=== PATIENT | female | born 1980 | race Hispanic/Latino ===

== ENCOUNTER 2020-07-03 11:43 | Inpatient (IN) | payer SELFPAY ==
[2020-07-03 12:35] LABS: #Lymphocytes 1.4 thou/uL (1.20-3.40); #Monocytes 0.4 thou/uL (0.11-0.59); #Neutrophils 14.2 thou/uL (1.40-6.50); %Basophils 0.1 % (0.0-1.0); %Eosinophils 0.3 % (0.0-10.0); %Lymphocytes 8.4 % (21.0-51.0); %Monocytes 2.8 % (0.0-10.0); %Neutrophils 88.4 % (42.0-75.0); Hemoglobin 13.5 g/dL (12.0-16.0); Mean Corpuscular HGB CONC 32.2 g/dL (32.0-36.0); Mean Corpuscular Hemoglobin 26.5 pg (27.0-31.0); Mean Corpuscular Volume 82.4 fL (78.0-98.0); Mean Platelet Volume 8.5 fL (7.4-10.4); Platelet Count 352 thou/uL (130-400); RBC Distribution Width 14.1 % (11.5-14.5); Red Blood Cell (RBC) Count 5.08 mill/uL (4.20-5.40)
[2020-07-03] MEDS ORDERED: Morphine 4 MG/ML VIAL ONE (12:36)
[2020-07-03] MEDS ORDERED: Ondansetron PF 4 MG/2 ML Vial ONE (12:36)
[2020-07-03 12:38] LABS: Bilirubin Negative (Negative); Blood, Urine 3+ (Negative); Clarity Turbid (Clear); Glucose, Urine (Dipstick) Normal (Negative); Ketone, Urine Trace mg/dL (Negative); Leukocyte Negative Leu/uL (Negative); Nitrite Negative (Negative); Protein, Urine (Dipstick) Greater than 600 mg/dL (Neg-Trace); RBC/HPF 21-50 HPF (0-3); Urobilinogen Normal mg/dL (Less than 2); pH, Urine 7.5 (5.0-9.0)
[2020-07-03 12:40] LABS: Pregnancy Test - Urine (BHCG) Negative (Negative); Pregu Control Background? CLEAR/WHITE (CLR/WHITE); Pregu Control Bar Appear? YES (CONTROL BAR)
[2020-07-03 12:48] LABS: Bacteria/HPF None Seen HPF (None Seen); Mucous/LPF 1+ LPF (<2+)
[2020-07-03 13:09] LABS: ALT (SGPT) 17 U/L (8-55); AST (SGOT) 15 U/L (5-34); Albumin 4.7 g/dL (3.5-5.0); Alkaline Phosphatase 92 U/L (40-110); Anion Gap 18 mmol/L (10-20); BUN (Urea Nitrogen) 14 mg/dL (7.0-18.7); Bilirubin, Total 0.3 mg/dL (0.2-1.2); Calc. Creatinine Clearance 0 mL/min (70-130); Calcium 9.9 mg/dL (7.8-10.44); Carbon Dioxide 25 mmol/L (22-29); Chloride 99 mmol/L (98-107); Glucose 154 mg/dL (70-105); Lipase 31 U/L (8-78); Potassium 4.3 mmol/L (3.5-5.1); Protein, Total 8.7 g/dL (6.0-8.3); Sodium 138 mmol/L (136-145)
[2020-07-03] MEDS ORDERED: Iopamidol-370 76% 500 ML 1 ML ONE (13:28)
--- NOTE | 2020-07-03 14:29 | CT ---
CT OF THE ABDOMEN AND PELVIS WITH IV CONTRAST INDICATION: Diffuse right-sided abdominal pain since 3:00 AM this morning with nausea and vomiting COMPARISON: None FINDINGS: ABDOMEN: Lung bases: Clear Liver: Mild fatty liver Gallbladder: Cholecystectomy Pancreas: Normal. Adrenal glands: Normal. Spleen: Normal. Kidneys and ureters: Normal. No hydronephrosis. Vasculature: Normal. Lymph nodes:No lymphadenopathy. Free fluid in abdomen:There is mild free fluid within the right upper quadrant of the abdomen. PELVIS: Small and large bowel: There are dilated loops of small bowel which transition to normal caliber with in the right lower quadrant of the abdomen on image 79 series 2. The colon demonstrates a mild amount of fluid and stool. Appendix:Normal Bladder: Normal. Rectal and perirectal soft tissues:Normal. Reproductive structures: Normal. Free fluid in pelvis: Mild free fluid Lymphadenopathy pelvis: No lymphadenopathy is evident. Osseous structures: No acute osseous abnormality. No destructive osteolytic or osteoblastic lesion i s identified. Soft tissues:There is a small fat-containing umbilicus hernia IMPRESSION: 1. Findings most consistent with a [id number] dorsal small bowel obstruction with a suggested t ransition zone in the right lower quadrant of the abdomen. There is mild free fluid in the pelvis and abdomen which may reactive. 2. Fatty liver. 3. Cholecystectomy.
[2020-07-03] MEDS ORDERED: Famotidine/PF 20 mg/2ml Vial ONE (15:39)
[2020-07-03 17:19] VITALS: BMI 36.1
[2020-07-03] MEDS ORDERED: Morphine 4 MG/ML VIAL SLOW IVP PRN (17:31)
[2020-07-03] MEDS ORDERED: Ondansetron PF 4 MG/2 ML Vial IVP PRN (17:31)
[2020-07-03] MEDS ORDERED: Promethazine HCl 12.5 MG in Sodium Chloride 0.9% 50 ML IVPB PRN (17:32)
[2020-07-03] MEDS: Sodium Chloride 0.9% 1,000 ML IV SCH (17:56)
[2020-07-03] MEDS ORDERED: Famotidine/PF 20 mg/2ml Vial SLOW IVP SCH (21:00)
[2020-07-04] MEDS: Sodium Chloride 0.9% 1,000 ML IV SCH (03:57)
[2020-07-04] MEDS ORDERED: Ondansetron PF 4 MG/2 ML Vial IVP PRN (07:27)
[2020-07-04] MEDS ORDERED: Morphine 2 MG/ML VIAL SLOW IVP PRN (07:27)
[2020-07-04] MEDS ORDERED: Dextrose 50% Abboject 50 ML SYRINGE SLOW IVP PRN (07:27)
[2020-07-04] MEDS ORDERED: Morphine 4 MG/ML VIAL SLOW IVP PRN (07:27)
[2020-07-04] MEDS ORDERED: Dextrose 5% in Water 1,000 ML IV PRN (07:27)
[2020-07-04] MEDS ORDERED: hydrALAZINE 20 MG/ML VIAL SLOW IVP PRN (07:27)
[2020-07-04 08:05] LABS: #Basophils 0.1 thou/uL (0.0-0.2); #Eosinphils 0.1 thou/uL (0.0-0.7); #Lymphocytes 2.3 thou/uL (1.20-3.40); #Monocytes 0.8 thou/uL (0.11-0.59); #Neutrophils 8.7 thou/uL (1.40-6.50); %Basophils 0.6 % (0.0-1.0); %Eosinophils 0.4 % (0.0-10.0); %Lymphocytes 19.3 % (21.0-51.0); %Monocytes 6.9 % (0.0-10.0); %Neutrophils 72.7 % (42.0-75.0); Hemoglobin 11.2 g/dL (12.0-16.0); Mean Corpuscular HGB CONC 32.1 g/dL (32.0-36.0); Mean Corpuscular Hemoglobin 27.1 pg (27.0-31.0); Mean Corpuscular Volume 84.4 fL (78.0-98.0); Mean Platelet Volume 8.1 fL (7.4-10.4); Platelet Count 273 thou/uL (130-400); RBC Distribution Width 14.1 % (11.5-14.5); Red Blood Cell (RBC) Count 4.14 mill/uL (4.20-5.40); White Blood Cell (WBC) Count 11.9 thou/uL (4.8-10.8)
[2020-07-04] MEDS ORDERED: Famotidine/PF 20 mg/2ml Vial SLOW IVP SCH (09:00)
--- NOTE | 2020-07-04 10:26 | RAD ---
EXAM: XR Small Bowel STANDARD DATE: 07/04/2020 7:34 AM INDICATION: Partial small bowel obstruction COMPARISON: None. FINDING: Bowel gas pattern is nonspecific. There are a few mildly prominent gas-filled loops of smal l bowel within the central abdomen. Subsequent administration Gastrografin contrast demonstrated progressive migration of contrast through the mildly dilated loops of small bowel with opacification of the colon by 1.5 hours. IMPRESSION:Mild partial small bowel obstruction.
[2020-07-04] MEDS: D5 1/2 NS w/20 mEq KCL 1,000 ML IV SCH ×2 (11:10→15:45)
[2020-07-04] MEDS ORDERED: MD-Gastroview 120 ML BOT ONE (13:52)
[2020-07-04 19:55] VITALS: BP 127/74; TEMP 99
--- NOTE | 2020-07-04 22:51 | SS ---
DATE OF ADMISSION: 07/03/2020 DATE OF DISCHARGE: 07/04/2020 CHIEF COMPLAINT: Abdominal pain with nausea and vomiting. DISCHARGE DIAGNOSIS: Abdominal pain with nausea and vomiting with no evidence of small-bowel obstruction. ADMISSION HISTORY: The patient is a 40-year-old female, who speaks limited Welsh. She woke up at 3 o'clock in the morning on (yesterday), complaining of upper abdominal pain with nausea and vomiting. This persisted through the day and in the afternoon. She presented to the emergency room. A CT scan was obtained at that time, which showed questionable small bowel dilatation that was felt to be potentially consistent with a [id number] small-bowel obstruction. The patient's only prior surgical history was a laparoscopic cholecystectomy four years previously. A nasogastric tube was placed in the emergency room and she was admitted to the floor. Of note, when she was admitted, her white blood cell count was elevated at 16. Her hemoglobin was normal at 13.5. Chemistry profile was unremarkable. PAST MEDICAL HISTORY: Significant for hypothyroidism and hypertension. PAST SURGICAL HISTORY: Laparoscopic cholecystectomy in 2015. MEDICATIONS: Proventil inhaler, Synthroid, and lisinopril. ALLERGIES: NO KNOWN DRUG ALLERGIES. PERSONAL AND SOCIAL HISTORY: She is with 3 children. One of her sons is present at bedside with her and acts as her arnp. She does not smoke nor does she drink alcohol. Her primary care physician is Juli Cheung at [facility]. REVIEW OF SYSTEMS: Ten-system review is otherwise unremarkable. FAMILY HISTORY: Noncontributory. PHYSICAL EXAMINATION: VITAL SIGNS: Temperature 99, pulse 80, and blood pressure 127/74. GENERAL: She is a well-developed, well-nourished, moderately obese female, who is resting in bed, in no acute distress. She is alert and oriented x3. HEAD, EYES, EARS, NOSE, AND THROAT: Unremarkable. NECK: Supple without mass or tenderness. LUNGS: Clear to auscultation throughout. CARDIAC: Regular rate and rhythm without murmur. ABDOMEN: Soft and nondistended. She has hypoactive bowel sounds. There is no focal tenderness in any quadrant. LABORATORY DATA: Labs are as mentioned above. Of note, her white blood cell count decreased from yesterday to this morning, going from 16 to 11.9. ASSESSMENT: The patient with abdominal discomfort, nausea and vomiting, and an abnormal CT scan. My initial review of this CAT scan showed small bowel with limited dilatation and significant amount of contents within the colon. HOSPITAL COURSE: When I reviewed her CAT scan early this morning (on the ), I felt it was unlikely that she had a significant small bowel obstruction. It would be rare to have a significant obstructive process following only a laparoscopic cholecystectomy. Additionally, I thought it was likely that the dilatation was not likely to be consistent with a significant obstructing process. There was some degree of decompressed small bowel distally. I ordered a Gastrografin small-bowel follow-through. This showed the contrast traversing the bowel rapidly and entering the colon by an hour and a half. She had no vomiting after that procedure (even though her nasogastric tube was removed) and she drank the contrast herself, and then shortly thereafter, she had several bowel movements as the contrast passed through into her colon. The nasogastric tube was not replaced. She was given a clear liquid diet. She has tolerated this now for about 10 hours without nausea or vomiting. She notes no discomfort. Her vital signs remained stable. FINAL ASSESSMENT AND PLAN: There was no small bowel obstruction. She is discharged home at this time. I recommend a liquid diet for 48 hours followed by resuming her normal diet. As no surgery was performed, I will see her in the future on a p.r.n. basis, although she was given my card and encouraged to call me if she does have further problems or concerns. Job ID: [id number]
== END 2020-07-04 20:43 | disposition home or self-care (01) | DRG 392 ==
LOC: ERS 11:43 → ONC 15:00
PROVIDERS: ADMIT Specialist; ATTEND Specialist
PROC: 0D9670Z Drainage of Stomach with Drainage Device, Via Natural or Artificial Opening (ICD-10-PCS; principal; 2020-07-03)
DX: R10.9 Unspecified abdominal pain (principal); E11.9 Type 2 diabetes mellitus without complications; E66.9 Obesity, unspecified; E03.9 Hypothyroidism, unspecified; R11.2 Nausea with vomiting, unspecified; Z79.899 Other long term (current) drug therapy; Z90.49 Acquired absence of other specified parts of digestive tract; Z79.890 Hormone replacement therapy; Z68.36 Body mass index [BMI] 36.0-36.9, adult
CPT/HCPCS: 36415; 74177; 74250; 80053; 81003; 81015; 81025; 83690; 85025; 90471; 90732; 96361; 96374; 96375; G0009; J2270; J2405; J3480; Q9963; Q9967; S0028